=== PATIENT | female | born 1980 | race Caucasian/White ===

== ENCOUNTER 2017-09-20 06:23 | Observation (INO) | payer OTHER ==
[2017-09-20] MEDS ORDERED: Sodium Chloride 0.9% 1,000 ML IV STA (07:42)
--- NOTE | 2017-09-20 07:55 | ED PDOC ---
Upper Extremity Pain/Injury Time Seen by Provider: 09/20/17 07:11 Chief Complaint (Nursing): Upper Extremity Problem/Injury Chief Complaint (Provider): Right Wrist Pain History Per: Patient History/Exam Limitations: no limitations Onset/Duration Of Symptoms: Days (x 1.5 weeks) Current Symptoms Are (Timing): Still Present Additional Complaint(s): Latonya is a 37 y/o female who presents to the ED complaining of right wrist pain after falling while snowboarding 1.5 weeks ago. Patient denies numbness, tingling, or any other medical complaints. States dx with a fracture and pain still present. PMD: Dr. Deanna Quispe Past Medical History Reviewed: Historical Data, Nursing Documentation, Vital Signs Vital Signs: Last Vital Signs Temp 98.6 F 09/20/17 06:35 Pulse 71 09/20/17 06:35 Resp 18 09/20/17 06:35 BP 146/81 09/20/17 06:35 Pulse Ox 100 09/20/17 06:35 - Medical History PMH: Fractures Denies: Chronic Kidney Disease - Family History Family History: States: Unknown Family Hx - Home Medications Home Medications: Ambulatory Orders Medication Instructions Recorded oxyCODONE/Acetaminophen [Percocet 1 tab PO Q4H PRN 09/20/17 5/325 mg Tab] - Allergies Allergies/Adverse Reactions: Allergies Allergy/AdvReac Type Severity Reaction Status Date / Time No Known Allergies Allergy Verified 09/20/17 06:35 Review of Systems ROS Statement: Except As Marked, All Systems Reviewed And Found Negative Musculoskeletal: Positive for: Arm Pain (right wrist) Physical Exam - Reviewed Nursing Documentation Reviewed: Yes Vital Signs Reviewed: Yes - Physical Exam Appears: Positive for: Non-toxic, No Acute Distress Skin: Positive for: Normal Color, Warm, Dry Neck: Positive for: Normal, Painless ROM, Supple Cardiovascular/Chest: Positive for: Regular Rate, Rhythm. Negative for: Murmur Respiratory: Positive for: Normal Breath Sounds. Negative for: Respiratory Distress Pulses-Radial (R): 2+ Back: Positive for: Normal Inspection. Negative for: L CVA Tenderness, R CVA Tenderness Extremity: Positive for: Normal ROM (able to wiggle fingers on right hand), Tenderness (right wrist) Neurologic/Psych: Positive for: Alert, Oriented - Laboratory Results Result Diagrams: 09/20/17 07:51 09/20/17 07:51 - ECG O2 Sat by Pulse Oximetry: 100 (RA) Pulse Ox Interpretation: Normal - Progress ED Course And Treament: 830: Stable. Spoke with Dr. Barrera. Will admit for further pain evaluation and treatment as pt. failed outpt. tx. 856: Spoke with Dr. Paulson. Will consult on case. Stable. Wants wrist x- rays. Medical Decision Making Medical Decision Making: Time: 7:40 Initial Impression: Right Wrist Injury Initial Plan: --EKG --CMP --Troponin --Urine --Urine Dip --CBC --PTT --Prothrombin Time --Chest XR --Urine Culture --Urinalysis Time: 8:02 --Patient to be admitted for intractable wrist pain Scribe Attestation: Documented by Derrell Thurman, acting as a scribe for Dr. Raheem Carbajal MD. Provider Scribe Attestation: All medical record entries made by the Scribe were at my direction and personally dictated by me. I have reviewed the chart and agree that the record accurately reflects my personal performance of the history, physical exam, medical decision making, and the department course for this patient. I have also personally directed, reviewed, and agree with the discharge instructions and disposition. Disposition - Clinical Impression Clinical Impression: Wrist pain - Patient ED Disposition Is Patient to be Admitted: Yes Counseled Patient/Family Regarding: Studies Performed, Diagnosis - Disposition Disposition Time: 08:02 Condition: FAIR - Pt Status Changed To: Hospital Disposition Of: Observation - POA Present On Arrival: Falls Or Trauma
[2017-09-20 08:00] LABS: BASO % 0.6 % (0.0-2.0); EOS # 0.1 K/uL (0.0-0.7); EOS % 1.1 % (0.0-4.0); HEMOGLOBIN 12.1 g/dL (12.0-16.0); LYMPH # 1.3 K/uL (1.0-4.3); MEAN CELL VOLUME 89.6 fl (81.0-99.0); MEAN CORPUSCULAR HEMOGLOBIN 30.5 pg (27.0-31.0); MEAN PLATELET VOLUME 8.5 fl (7.2-11.7); MONO # 0.4 K/uL (0.0-0.8); MONO % 6.2 % (0.0-10.0); NEUT # 5.3 K/uL (1.8-7.0); NEUT % 74.1 % (50.0-75.0); NRBC % 0.1 % (0.0-0.0); RBC 3.97 Mil/uL (3.80-5.20); RED CELL DISTRIBUTION WIDTH 14.3 % (11.5-14.5); WHITE BLOOD COUNT 7.2 K/uL (4.8-10.8)
[2017-09-20 08:07] LABS: ALB/GLOB RATIO 1.2 (1.0-2.1); ALBUMIN 4.2 g/dL (3.5-5.0); ALT/SGPT 32 U/L (9-52); AST/SGOT 29 U/L (14-36); BLOOD UREA NITROGEN 14 mg/dl (7-17); CALCIUM 9.1 mg/dL (8.4-10.2); GFR AFRICAN-AMERICAN > 60; GFR NON-AFRICAN AMERICAN > 60
[2017-09-20 08:12] LABS: INR 1.1 (0.9-1.2); PROTHROMBIN TIME 11.9 Seconds (9.8-13.1)
--- NOTE | 2017-09-20 08:52 | RAD ---
HISTORY: arm pain COMPARISON: No prior. FINDINGS: LUNGS: No active pulmonary disease. PLEURA: No significant pleural effusion identified, no pneumothorax apparent. CARDIOVASCULAR: Normal. OSSEOUS STRUCTURES: No significant abnormalities. VISUALIZED UPPER ABDOMEN: Normal. OTHER FINDINGS: None. IMPRESSION: No active disease.
--- NOTE | 2017-09-20 09:03 | CP.PCM.HP ---
History of Present Illness - History of Present Illness History of Present Illness: 37 year old female patient with no significant PMHx was seen and evaluated at bedside in ED for right arm/hand injury which occured on 09/09 while snowboarding. Patient reports that she fell on her arm and felt a sudden pain. Patient states that she was taken to the local hospital where they provided her with first aid treatment. Patient reports that once she returned home, she went to go see her primary care doctor who told her right arm was broken and was sent to the ER in [place]. Patient reports that she was casted in the ER and was referred to Dr. Paulson. Patient reports that is able to move her fingers but feels numbness and tingling along with pain in her arm. Patient reports that she is otherwise healthy and denies of any shortness of breath, or chest pain during any physical activity or during rest. Patient denies of any recent urinary frequency, burning or urgency. Patient denies of any recent F/N/V/C/SOB/ CP/headache/diarrhea/constipation. Patient denies of having any other complains at this time. PMHx: Denies PSHx: Laser eye surgery at age of 18 Allergies: N.K.D.A Medications: See chart SHx: Denies smoking, EtOH, illicit drug usage, Works at [employer] FHx: Father: heart surgery; Grandfather: in 70s due to a heart attack; Grandmother: due to cancer Present on Admission - Present on Admission Any Indicators Present on Admission: No Review of Systems - Constitutional Constitutional: As Per HPI - EENT Eyes: As Per HPI - Breasts Breasts: As Per HPI - Cardiovascular Cardiovascular: As Per HPI - Respiratory Respiratory: As Per HPI - Gastrointestinal Gastrointestinal: As Per HPI - Genitourinary Genitourinary: As Per HPI - Reproductive: Female Reproductive:Female: As Per HPI - Menstruation Menstruation: As Per HPI - Musculoskeletal Musculoskeletal: Joint Swelling, Limited Range of Motion, Numbness - Integumentary Integumentary: As Per HPI - Neurological Neurological: As Per HPI - Psychiatric Psychiatric: As Per HPI - Endocrine Endocrine: As Per HPI - Hematologic/Lymphatic Hematologic: As Per HPI Past Patient History - Past Medical History & Family History Past Medical History?: No - Past Social History Smoking Status: Never Smoked - CARDIAC Hx Cardiac Disorders: No - PULMONARY Hx Respiratory Disorders: No - NEUROLOGICAL Hx Neurological Disorder: No - HEENT Hx HEENT Problems: No - RENAL Hx Chronic Kidney Disease: No - ENDOCRINE/METABOLIC Hx Endocrine Disorders: No - HEMATOLOGICAL/ONCOLOGICAL Hx Blood Disorders: No - INTEGUMENTARY Hx Dermatological Problems: No - MUSCULOSKELETAL/RHEUMATOLOGICAL Hx Fractures: Yes - GASTROINTESTINAL Hx Gastrointestinal Disorders: No - GENITOURINARY/GYNECOLOGICAL Hx Genitourinary Disorders: No - PSYCHIATRIC Hx Psychophysiologic Disorder: No Hx Emotional Abuse: No Hx Physical Abuse: No Hx Substance Use: No - SURGICAL HISTORY Hx Surgeries: No - ANESTHESIA Hx Anesthesia: No Meds Allergies/Adverse Reactions: Allergies Allergy/AdvReac Type Severity Reaction Status Date / Time No Known Allergies Allergy Verified 09/20/17 06:35 Physical Exam - Constitutional Appears: Well, Non-toxic, No Acute Distress - Head Exam Head Exam: ATRAUMATIC - Eye Exam Eye Exam: Normal appearance - ENT Exam ENT Exam: Normal Exam - Neck Exam Neck exam: Positive for: Full Rom, Normal Inspection - Respiratory Exam Respiratory Exam: Clear to Auscultation Bilateral, NORMAL BREATHING PATTERN. absent: Rales, Rhonchi, Wheezes - Cardiovascular Exam Cardiovascular Exam: REGULAR RHYTHM, +S1, +S2. absent: Bradycardia, Tachycardia - GI/Abdominal Exam GI & Abdominal Exam: Normal Bowel Sounds, Soft. absent: Mass, Organomegaly - Rectal Exam Rectal Exam: Deferred - Extremities Exam Extremities exam: Positive for: full ROM, normal capillary refill, normal inspection, pedal pulses present. Negative for: calf tenderness, joint swelling , pedal edema, tenderness - Expanded Upper Extremities Exam Right Forearm Wrist exam: ecchymosis, swelling, tenderness - Back Exam Back exam: FULL ROM, NORMAL INSPECTION - Neurological Exam Neurological exam: Alert, Oriented x3 - Psychiatric Exam Psychiatric exam: Normal Affect, Normal Mood - Skin Skin Exam: Intact, Normal Color, Warm Results - Vital Signs Recent Vital Signs: Last Vital Signs Temp 98.6 F 09/20/17 06:35 Pulse 71 09/20/17 06:35 Resp 18 09/20/17 06:35 BP 146/81 09/20/17 06:35 Pulse Ox 100 09/20/17 08:47 - Labs Result Diagrams: 09/20/17 07:51 09/20/17 07:51 Labs: Laboratory Results - last 24 hr 09/20/17 09/20/17 09/20/17 07:51 07:51 07:51 WBC 7.2 RBC 3.97 Hgb 12.1 Hct 35.6 MCV 89.6 MCH 30.5 MCHC 34.0 RDW 14.3 Plt Count 237 MPV 8.5 Neut % (Auto) 74.1 Lymph % (Auto) 18.0 L [place] % (Auto) 6.2 Eos % (Auto) 1.1 Baso % (Auto) 0.6 Neut # (Auto) 5.3 Lymph # (Auto) 1.3 [place] # (Auto) 0.4 Eos # (Auto) 0.1 Baso # (Auto) 0.0 PT 11.9 INR 1.1 APTT 29.0 Sodium 141 Potassium 3.8 Chloride 102 Carbon Dioxide 27 Anion Gap 16 BUN 14 Creatinine 0.6 L Est GFR ( Amer) > 60 Est GFR (Non-Af Amer) > 60 Random Glucose 82 Calcium 9.1 Total Bilirubin 0.3 AST 29 ALT 32 Alkaline Phosphatase 44 Troponin I < 0.0120 Total Protein 7.5 Albumin 4.2 Globulin 3.4 Albumin/Globulin Ratio 1.2 Assessment & Plan - Assessment and Plan (Free Text) Assessment: 37 year old female patient with no significant PMHx evaluated for intractable right wrist pain s/p trauma Plan: 1). Intractable right wrist pain - Orthopedic Consult - Dr. Paulson - Pre-op workup: Labs, Urine , CXR, EKG - NPO status confirmed - since midnight - Pain management 2). DVT PPx - Ambulating - Hold medications since going for surgery - Date & Time Date: 09/20/17 Time: 09:06
[2017-09-20 09:43] LABS: SQUAMOUS EPITHIAL < 1 /hpf (0-5); URINE BILIRUBIN NEGATIVE (NEGATIVE); URINE BLOOD NEGATIVE (NEGATIVE); URINE CLARITY CLEAR (Clear); URINE COLOR STRAW (YELLOW); URINE GLUCOSE (UA) NEG (Normal); URINE LEUKOCYTE ESTERASE NEG Leu/uL (Negative); URINE NITRATE NEGATIVE (NEGATIVE); URINE PROTEIN NEGATIVE (NEGATIVE); URINE UROBILINOGEN 0.2-1.0 mg/dL (0.2-1.0)
[2017-09-20] MEDS ORDERED: Propofol 10 mg/ml Inj (20 ML) ONE (12:34)
[2017-09-20] MEDS ORDERED: Lidocaine 1% Inj (20ml) ONE (12:35)
[2017-09-20] MEDS ORDERED: Midazolam 2 MG/2 ML VIAL ONE (12:35)
[2017-09-20] MEDS ORDERED: MethylPREDNISolone Depo 40 mg/ml Inj ONE (12:35)
[2017-09-20] MEDS ORDERED: methylPREDNISolone Depo 80 mg/ml Inj ONE (12:35)
[2017-09-20] MEDS ORDERED: Rocuronium 10 mg/ml (5 ml) ONE (12:35)
[2017-09-20] MEDS ORDERED: Succinylcholine 200 mg/10 ml Inj IV ONE (12:35)
[2017-09-20] MEDS ORDERED: Bupivacaine 0.5% Inj(30mL) ONE (12:36)
[2017-09-20] MEDS ORDERED: Bacitracin Ointment 30 GM TUBE ONE (12:36)
[2017-09-20] MEDS ORDERED: ceFAZolin IV 1 gm in Dextrose 1 GM/50 ML BAG IVPB ONE (13:03)
[2017-09-20] MEDS ORDERED: Dexamethasone 4 mg/1 ml ONE (13:38)
[2017-09-20] MEDS ORDERED: Lactated Ringer's 1,000 ML IV ONE ×3 (14:00→14:28)
[2017-09-20] MEDS ORDERED: HYDROmorphone 0.5 mg/0.5 ml ISec IVP PRN (14:33)
--- NOTE | 2017-09-20 15:43 | PCM.SURG1 ---
Surgeon's Initial Post Op Note - Surgeon's Notes Surgeon: Lorene Switch Crew Supervisor: LUIS Nieto Type of Anesthesia: General Endo Anesthesia Administered By: DR Garcia Pre-Operative Diagnosis: Displaced, angulated distal radius fx Operative Findings: as above Post-Operative Diagnosis: as above Operation Performed: Closed reduction dital radius fx/percutaneous pin fixation distal radius fx. applx short arm cast. positioning of fluoro/interpretation of video images Specimen/Specimens Removed: N/A Estimated Blood Loss: EBL {In ML}: 2 Blood Products Given: N/A Drains Used: No Drains Post-Op Condition: Good Date of Surgery/Procedure: 09/20/17 Time of Surgery/Procedure: 13:40 (time in room/anesthesia indcution time 1306)
[2017-09-20] MEDS ORDERED: Oxycodone/Acetaminophen 5/325 mg Tab PO PRN (15:47)
--- NOTE | 2017-09-20 16:19 | RAD ---
PROCEDURE: Right Wrist Radiographs. HISTORY: s/p closed reduction pinning rt distal radius COMPARISON: None. FINDINGS: BONES: Three pins transfix a nondisplaced distal radial metaphyseal fracture. Overlying casting material present JOINTS: Normal. No dislocation. SOFT TISSUES: Normal. OTHER FINDINGS: None. IMPRESSION: Reduction/pinning of a distal radial metaphyseal nondisplaced fracture
[2017-09-20 16:38] VITALS: RESP 18; O2SAT 100
--- NOTE | 2017-09-20 17:03 | OP ---
PROCEDURE DATE: 09/20/2017 ATTENDING PHYSICIAN: Khushi Barrera MD PREOPERATIVE DIAGNOSIS: Displaced angulated distal radius fracture of the right wrist. POSTOPERATIVE DIAGNOSIS: Displaced angulated distal radius fracture of the right wrist. PROCEDURES: 1. Closed reduction and percutaneous pin fixation, displaced right distal radius fracture. 2. Application of short arm cast. 3. Positioning of fluoroscope interpretation of video images. SURGEON: Red Paulson MD CLINICAL TRIAL DATA MANAGER: Maura Frost, certified registered nursing assistant financial accountant. TYPE OF ANESTHESIA: General endotracheal anesthesia. ANESTHESIA ADMINISTERED BY: Dr. Garcia. SPECIMENS: No specimens removed. ESTIMATED BLOOD LOSS: Approximately 2 mL. BLOOD PRODUCTS GIVEN: None. DRAINS: No drains. POSTOPERATIVE CONDITION: Good and stable. LOCATION: [facility]. TIME OF SURGERY: Time in the room 13:06, incision time 13:40. OPERATIVE INDICATION: Latonya Spangler is a 37-year-old woman who was snowboarding and sustained a fall on an outstretched right distal radius. The patient presents to the emergency room with marked discomfort, pain and restricted range of motion. The patient can no longer withstand the discomfort. The x-rays were evaluated. The patient was admitted for definitive management. Pros, cons, risks and benefits of closed reduction and pin fixation, possibility of mechanical failure, infection, stiffness, thromboembolic disease, secondary or tertiary surgery was discussed. The concept of this closed reduction without ancillary fixation was discussed. The problem is the patient did not wish long-arm cast above the elbow. The concept of pin fixation with a short-arm casting was discussed. The possibility of mechanical failure, infection, thromboembolic disease, secondary or tertiary surgery was discussed. OPERATIVE PROCEDURE: After having obtained informed consent in the above fashion; after the satisfactory induction of the anesthetic; after having identified side, site and procedure and a critical pause/time-out, the right upper extremity was prepped and free draped in the usual fashion for upper extremity surgery. The patient was placed in finger trap traction. A counter weight was placed across the brachium. Under the surgeon's direction, the fluoroscope was positioned, video images were generated, therapeutic decisions were made therefrom. The fracture was reduced by exacerbating the deformity, reversing the deformity, the counter weight had been placed across the brachium. Closed reduction having been accomplished. Under the surgeon's direction, the fluoroscope was positioned, video images were generated and therapeutic decisions were made therefrom. The position was found to be acceptable. The radial styloid was identified using a tonsil clamp using #11 blade. Skin incision was carried down through the skin. The radial styloid was identified. After closed reduction was accomplished, percutaneous pin fixation was accomplished across the fracture with 3 interrupted K-wires. The K-wires were clipped, closures with interrupted nylon. A compression dressing was applied and a well-padded short arm cast was accomplished. Neurocirculatory status intact in recovery. Postoperative x-rays revealed acceptable position of the construct. It should be noted that the certified registered nursing assistant financial accountant, Maura Frost, was essential to the completion of the operative goal. Red Paulson MD
[2017-09-20 18:59] VITALS: BP 120/76; PULSE 68; TEMP 97.6
[2017-09-20] MEDS ORDERED: Oxycodone/Acetaminophen 5/325 mg Tab PO ONE (19:00)
--- NOTE | 2017-09-21 09:41 | CARD ---
APPROVED REPORT EKG Measurement Heart [id number] ID [id number] <Conclusion> Normal sinus rhythm Normal ECG
--- NOTE | 2017-09-21 17:19 | RAD ---
PROCEDURE: Intraoperative Fluoroscopy. HISTORY: RIGHT WRIST FINDINGS: Fluoroscopic assistance was provided for open reduction internal fixation right wrist fracture. Please refer to the operative report from KOREY Acosta. Total fluoroscopic time (continuous mode) utilized during the procedure: 19.2 seconds. Total exam DLP: (mGy): 0.39.
== END 2017-09-20 19:25 | disposition home or self-care (01) ==
LOC: H.ER 06:23 → H.ERHOLD 08:02
PROVIDERS: ADMIT Hospitalist; ATTEND Hospitalist
DX: S52.501A Unspecified fracture of the lower end of right radius, initial encounter for closed fracture (principal); V00.311A Fall from snowboard, initial encounter; Y93.23 Activity, snow (alpine) (downhill) skiing, snowboarding, sledding, tobogganing and snow tubing
CPT/HCPCS: 25606; 71045; 73110; 80053; 81003; 81025; 84484; 85025; 85610; 85730; 87086; 93005; 99283; G0378; J0330; J0690; J1100; J1170; J2001; J2250; J2405; J2704; J3010; J7030; J7040; J7120

== ENCOUNTER 2017-11-06 07:21 | Observation (INO) | payer OTHER ==
[2017-11-06 07:46] VITALS: O2SAT 100
--- NOTE | 2017-11-06 08:28 | CP.SDSHP ---
Same Day Surgery H & P - History Proposed Procedure: Right wrist removal of hardware Pre-Op Diagnosis: Right wrist distal radius fracture, s/p closed reduction percutaneous pinning - Previous Medical/Surgical History Pain: 6.Severe Pain Previous Surgical History: Right wrist distal radius fx, CRPP - Allergies Allergies: Allergies No Known Allergies Allergy (Verified 11/06/17 07:42) - Current Medications Current Medications: none - Physical Exam General Appearance: No acute distress Vital Signs: Vital Signs 11/06/17 07:43 Temperature 97 F L Pulse Rate 75 Respiratory 16 Rate Blood Pressure 133/83 O2 Sat by Pulse 100 Oximetry Mental Status: Alert & Oriented x3 Neuro: WNL Heart: WNL Lungs: WNL GI: WNL - {Optional Preform as Required} Abdomen: WNL Integument: WNL Ortho: Other (R wrist: short arm cast intact, moving alll fingers without pain, no swelling, sensation intact MN/UN/RN, intact motor MN/UN/PIN/AIN, 2 sec cap refill) ENT: WNL - Impression Impression: Patient is a 37 y/o female who presents to the ER with severe wrist pain which has worsened over the past few days. She has a history of a R wrist CRPP of distal radius fx performed on 09/20/17. She denies any recent injury or trauma to the wrist. There is pain with movement of the arm affecting her activities of daily living, such as lifting and getting dressed prompting her ER visit. Pt. Evaluated Today:Candidate for Anesthesia & Procedure: Yes (Risks/georgette d/w pt and she agrees to proceed with procedure as above) - Date & Time Date: 11/06/17 Time: 08:00 Short Stay Discharge - Short Stay Discharge Admitting Diagnosis/Reason for Visit: RT ARM PAIN Disposition: HOME/ ROUTINE
--- NOTE | 2017-11-06 08:51 | CP.PCM.HP ---
History of Present Illness - History of Present Illness History of Present Illness: Patient is a 37 y/o female who presents to the ER c/o severe wrist pain which has worsened over the past few days. She has a history of a R wrist CRPP of distal radius fx performed on 09/20/17. She denies any recent injury or trauma to the wrist. There is pain with movement of the arm affecting her activities of daily living, such as lifting and getting dressed prompting her ER visit. Present on Admission - Present on Admission Any Indicators Present on Admission: No Review of Systems - Review of Systems All systems: reviewed and no additional remarkable complaints except Review of Systems: As per HPI Past Patient History - Infectious Disease Hx of Infectious Diseases: None - Tetanus Immunizations Tetanus Immunization: Unknown - Past Medical History & Family History Past Medical History?: No Past Family History: Reviewed and not pertinent - Past Social History Smoking Status: Never Smoked Chewing Tobacco Use: No Cigar Use: No Alcohol: None Drugs: Denies - CARDIAC Hx Cardiac Disorders: No - PULMONARY Hx Respiratory Disorders: No - NEUROLOGICAL Hx Neurological Disorder: No - HEENT Hx HEENT Problems: No - RENAL Hx Chronic Kidney Disease: No - ENDOCRINE/METABOLIC Hx Endocrine Disorders: No - HEMATOLOGICAL/ONCOLOGICAL Hx Blood Disorders: No - INTEGUMENTARY Hx Dermatological Problems: No - MUSCULOSKELETAL/RHEUMATOLOGICAL Hx Fractures: Yes - GASTROINTESTINAL Hx Gastrointestinal Disorders: No - GENITOURINARY/GYNECOLOGICAL Hx Genitourinary Disorders: No - PSYCHIATRIC Hx Psychophysiologic Disorder: No Hx Emotional Abuse: No Hx Physical Abuse: No Hx Substance Use: No - SURGICAL HISTORY Hx Surgeries: Yes (Right wrist fx closed reduction percutaneous pinning) Other/Comment: right arm fracture repair 09/20/17 - ANESTHESIA Hx Anesthesia: Yes Hx Anesthesia Reactions: No Meds Allergies/Adverse Reactions: Allergies Allergy/AdvReac Type Severity Reaction Status Date / Time No Known Allergies Allergy Verified 11/06/17 07:42 Physical Exam - Constitutional Appears: Well, No Acute Distress - Head Exam Head Exam: ATRAUMATIC, NORMAL INSPECTION, NORMOCEPHALIC - Eye Exam Eye Exam: EOMI, Normal appearance, PERRL - ENT Exam ENT Exam: Mucous Membranes Moist - Neck Exam Neck exam: Positive for: Normal Inspection - Respiratory Exam Respiratory Exam: NORMAL BREATHING PATTERN - Extremities Exam Additional comments: R wrist: short arm cast intact, moving alll fingers without pain, no swelling, sensation intact MN/UN/RN, intact motor MN/UN/PIN/AIN, 2 sec cap refill - Neurological Exam Neurological exam: Alert, Normal Gait, Oriented x3 - Psychiatric Exam Psychiatric exam: Normal Affect, Normal Mood - Skin Skin Exam: Normal Color Results - Vital Signs Recent Vital Signs: Last Vital Signs Temp 97 F L 11/06/17 07:43 Pulse 75 11/06/17 07:43 Resp 16 11/06/17 07:43 BP 133/83 11/06/17 07:43 Pulse Ox 100 11/06/17 07:43 Assessment & Plan (1) Distal radius fracture, right Assessment and Plan: Patient is a 37 y/o female with severe wrist pain s/p right wrist CRPP prompting emergent consultation -NPO -OR today for R wrist removal of hardware -Risks/benefits/adv/disadv of the surgery were discussed in detail with the patient and she understands. She agrees to proceed with the procedure listed above. -Case and plan d/w Dr. Paulson in agreement Status: Acute - Date & Time Date: 11/06/17 Time: 08:00
--- NOTE | 2017-11-06 09:41 | ED PDOC ---
Upper Extremity Pain/Injury Time Seen by Provider: 11/06/17 08:35 Chief Complaint (Nursing): Upper Extremity Problem/Injury Chief Complaint (Provider): Right forearm pain History Per: Patient History/Exam Limitations: no limitations Onset/Duration Of Symptoms: Days Current Symptoms Are (Timing): Still Present Quality: "Pain" Additional Complaint(s): 37yo female, presents to ED for evaluation of intractable right forearm. Patient states she fell 2 months ago and sustained a right forearm fracture which was repaired by Dr. Paulson surgically. Patient states she presents to the ED today due to continuous intractable pain. She denies any numbness, tingling, new trauma or injury to her arm. She denies any other medical complaints. Past Medical History Reviewed: Historical Data, Nursing Documentation, Vital Signs Vital Signs: Last Vital Signs Temp 97 F L 11/06/17 07:43 Pulse 75 11/06/17 07:43 Resp 16 11/06/17 07:43 BP 133/83 11/06/17 07:43 Pulse Ox 100 11/06/17 07:43 - Medical History PMH: No Chronic Diseases, Fractures Denies: Chronic Kidney Disease - Surgical History Surgical History: No Surg Hx - Family History Family History: States: Unknown Family Hx - Social History Alcohol: None Drugs: Denies - Home Medications Home Medications: Ambulatory Orders Medication Instructions Recorded oxyCODONE/Acetaminophen [Percocet 1 ea PO Q4H PRN #30 tab 11/06/17 5/325 mg Tab] - Allergies Allergies/Adverse Reactions: Allergies Allergy/AdvReac Type Severity Reaction Status Date / Time No Known Allergies Allergy Verified 11/06/17 07:42 Review of Systems ROS Statement: Except As Marked, All Systems Reviewed And Found Negative Musculoskeletal: Positive for: Arm Pain (right forearm) Neurological: Negative for: Weakness, Numbness, Other (tingling) Physical Exam - Reviewed Nursing Documentation Reviewed: Yes Vital Signs Reviewed: Yes - Physical Exam Appears: Positive for: Non-toxic, No Acute Distress Head Exam: Positive for: ATRAUMATIC, NORMAL INSPECTION, NORMOCEPHALIC Skin: Positive for: Normal Color Eye Exam: Positive for: Normal appearance Neck: Positive for: Supple Cardiovascular/Chest: Positive for: Regular Rate, Rhythm Respiratory: Positive for: Normal Breath Sounds Pulses-Radial (L): 2+ Pulses-Radial (R): 2+ Extremity: Positive for: Capillary Refill (< 2 seconds), Other (limited exam of right forearm as it is in a cast; full ROM of all digits of right forearm. Distal sensations intact.) Neurologic/Psych: Positive for: Alert, Oriented. Negative for: Motor/Sensory Deficits - ECG O2 Sat by Pulse Oximetry: 100 (RA) Pulse Ox Interpretation: Normal Medical Decision Making Medical Decision Making: Impression: Right forearm fracture Plan: -- Case discussed with Dr. Paulson who states patient needs emergent evaluation for another procedure. Patient to be admitted under Dr. Paulson for further evaluation. Scribe Attestation: Documented by Eleanor Lua, acting as a scribe for Gosia Green MD. Provider Scribe Attestation: All medical record entries made by the Scribe were at my direction and personally dictated by me. I have reviewed the chart and agree that the record accurately reflects my personal performance of the history, physical exam, medical decision making, and the department course for this patient. I have also personally directed, reviewed, and agree with the discharge instructions and disposition. Disposition - Clinical Impression Clinical Impression: Fracture of wrist - Patient ED Disposition Is Patient to be Admitted: Yes Discussed With : eRd Paulson III Doctor Will See Patient In The: Hospital Counseled Patient/Family Regarding: Studies Performed, Diagnosis - Disposition Disposition Time: 08:50 Condition: FAIR - Pt Status Changed To: Hospital Disposition Of: Observation - POA Present On Arrival: Falls Or Trauma
--- NOTE | 2017-11-06 11:27 | CP.PCM.PN ---
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 Patient counseled on the risks of addiction, physical or psychological dependence, and overdose associated with opioid drugs and the danger of taking opioid drugs with alcohol and other central nervous system depressants, and cautioned patient on storage and disposal. Objective - Vital Signs/Intake and Output Vital Signs (last 24 hours): Temp Pulse Resp BP Pulse Ox 97 F L 75 16 133/83 100 11/06/17 07:43 11/06/17 07:43 11/06/17 07:43 11/06/17 07:43 11/06/17 09:44
[2017-11-06] MEDS ORDERED: Propofol 10 mg/ml Inj (20 ML) ONE ×3 (11:41→12:47)
[2017-11-06] MEDS ORDERED: Succinylcholine 200 mg/10 ml Inj IV ONE (11:41)
[2017-11-06] MEDS ORDERED: Lactated Ringer's 500 ML IV ONE ×2 (12:00→12:45)
[2017-11-06] MEDS ORDERED: Morphine 1 mg/ml preservative-free Inj(Duramorph) ONE (12:03)
[2017-11-06] MEDS ORDERED: Bacitracin Ointment 30 GM TUBE ONE (12:03)
[2017-11-06] MEDS ORDERED: ceFAZolin IV 2 gm in Dextrose 2 GM/50 ML BAG IVPB ONE (12:03)
[2017-11-06] MEDS ORDERED: Bupivacaine 0.5% Inj(30mL) ONE (12:03)
[2017-11-06] MEDS ORDERED: MethylPREDNISolone Depo 40 mg/ml Inj ONE (12:03)
[2017-11-06] MEDS ORDERED: ePHEDrine 50 mg/ml Inj ONE (12:27)
[2017-11-06] MEDS ORDERED: Rocuronium 10 mg/ml (5 ml) ONE (12:40)
[2017-11-06] MEDS ORDERED: Naloxone 0.4 mg/ml Inj (Adult) ONE (12:52)
--- NOTE | 2017-11-06 12:53 | PCM.SURG1 ---
Surgeon's Initial Post Op Note - Surgeon's Notes Surgeon: Lorene Filter Washer: Dae Corona/ Bigg Alatorre Type of Anesthesia: General Endo Anesthesia Administered By: DR petersen Pre-Operative Diagnosis: healed R distal radius fx. painful hardware (deep) Operative Findings: as above Post-Operative Diagnosis: as above Operation Performed: [id number] hardware (deep). manipul;ation R wrist under anaestyhesia/fuoro. intrarticular injection wrist. appl wrist immpobilzer( dee lazaro compression dressing) Specimen/Specimens Removed: 3 k wires Estimated Blood Loss: EBL {In ML}: 3 Blood Products Given: N/A Drains Used: No Drains Post-Op Condition: Good Date of Surgery/Procedure: 11/06/17 Time of Surgery/Procedure: 12:35 (time in room/anesthesia induction time-12 nOON )
[2017-11-06] MEDS ORDERED: HYDROmorphone 0.5 mg/0.5 ml ISec IVP PRN (13:08)
[2017-11-06] MEDS ORDERED: Oxycodone/Acetaminophen 5/325 mg Tab PO PRN (13:09)
[2017-11-06 13:45] VITALS: RESP 18
[2017-11-06 16:12] VITALS: BP 136/76; PULSE 72; TEMP 97.8
--- NOTE | 2017-11-06 16:38 | RAD ---
PROCEDURE: Right Wrist Radiographs. HISTORY: Status post right wrist removal of hardware COMPARISON: Comparison made with prior radiographs right wrist 09/20/2017 FINDINGS: BONES: Interval removal 3 radiopaque fixation pins from the distal right radius with residual linear radiolucencies seen along the since removed hardware. Localized demineralization distal right radius. JOINTS: Normal. No dislocation. SOFT TISSUES: Normal. OTHER FINDINGS: None. IMPRESSION: Interval removal 3 radiopaque fixation pins from the distal right radius with residual linear radiolucencies seen along the since removed hardware. Localized demineralization distal right radius.
--- NOTE | 2017-11-06 17:06 | RAD ---
PROCEDURE: Intraoperative Fluoroscopy. HISTORY: RIGHT WRIST FINDINGS: Fluoroscopic assistance was provided. 4.3seconds fluoroscopy time utilized during this procedure. Please refer to the operative report from YOU Aguilar.
--- NOTE | 2017-11-08 09:47 | OP ---
PROCEDURE DATE: 11/06/2017 PREOPERATIVE DIAGNOSES: 1. Healed distal radius fracture. 2. Painful hardware, deep. OPERATIVE FINDINGS: 1. Healed distal radius fracture. 2. Painful hardware, deep. POSTOPERATIVE DIAGNOSES: 1. Healed distal radius fracture. 2. Painful hardware, deep. PROCEDURE: 1. Hardware removal, deep. 2. Manipulation of right wrist under anesthesia. 3. Cast removal. 4. Intra-articular injection. 5. Application of Codey Dumas compression dressing and wrist immobilizer. SURGEON: Red Paulson MD [employer]: Maura Frost, certified registered nursing program services assistant. SECOND FACTORY REPRESENTATIVE: rTa Verdin PA-C SPECIMENS REMOVED: Three K-wires. BLOOD LOSS: Approximately 3 mL. BLOOD PRODUCTS: No blood products given. DRAINS: No drains used. POSTOPERATIVE CONDITION: Stable. TIME OF SURGERY: Time in the room 12:00 noon, incision time 12:35. OPERATIVE INDICATION: Latonya Spangler (Franca) is a 37-year-old woman who approximately 6 weeks ago underwent a closed reduction and pin fixation of a displaced distal radius fracture. The operation was successful. The patient went to [place] to recover. The patient got off the plane from her trip to [place] and was having such a severe pain from the wires rubbing, that the patient came to the Emergency Room at [facility]. The patient came of her own accord, and the patient noted increasing pain from the painful hardware. I was contacted and after having discussed the case with the ER doctor and being concerned about skin breakdown, the patient was admitted as an emergency for surgery. Pros, cons, risks and benefits of the surgical approach were discussed. The possibility of stiffness, mechanical failure, infection, thromboembolic disease discussed. OPERATIVE PROCEDURE: After having obtained informed consent in the above fashion, after having identified side, site and procedure and a critical pause/time-out, after the satisfactory induction of the anesthetic, the patient identified as Latonya Spangler in the supine position with all bony prominences well padded, the right upper extremity was prepped and free draped in usual fashion for upper extremity surgery. It should be noted that the cast had been removed prior to prepping and draping. After having removed the cast, the right upper extremity was prepped and draped in the usual fashion for upper extremity surgery. Under the surgeon's direction, the fluoroscope was positioned. Video images were generated and therapeutic decisions were made therefrom. Location of the pins is identified. Again under the surgeon's direction, the fluoroscope was positioned, video images were generated, and therapeutic decisions were made therefrom. This having been accomplished, the wrist was manipulated. The pins were found to be prominent and are identified. The prominent hardware was identified and using #15 blade, the pins were identified and are removed sequentially. Great care was taken to avoid injury to the superficial sensory branch of the radial nerve. At this point in time, the fracture again was found to be healed. The pins were removed and the wrist was again manipulated in radial deviation, ulnar deviation, flexion and dorsiflexion. Portals were closed with interrupted nylon. Intra-articular injection was offered of Marcaine and Duramorph. Codey Dumas compression dressing and wrist immobilizer was applied. Red Paulson MD
== END 2017-11-06 16:40 | disposition home or self-care (01) ==
LOC: H.ER 07:21 → H.ERHOLD 08:50
PROVIDERS: ADMIT Orthopaedic Surgery; ATTEND Orthopaedic Surgery
DX: T84.84XA Pain due to internal orthopedic prosthetic devices, implants and grafts, initial encounter (principal); M25.531 Pain in right wrist; Y83.1 Surgical operation with implant of artificial internal device as the cause of abnormal reaction of the patient, or of later complication, without mention of misadventure at the time of the procedure; Z87.81 Personal history of (healed) traumatic fracture; Z91.81 History of falling
CPT/HCPCS: 20680; 73110; 81025; 88304; 99284; G0378; J0330; J0690; J1170; J2310; J2704; J3010; J7030; J7120